=== PATIENT | female | born 1945 | race Caucasian/White ===

== ENCOUNTER 2021-01-18 13:00 | Outpatient (RCR) | payer MEDICARE, OTHER, SELFPAY | END 2021-03-05 10:49 | disposition home or self-care (01) | LOC: HO.PTCHIC 13:00 | PROVIDERS: PCP Internal Medicine; Visit Provider Podiatrist | DX: M76.61 Achilles tendinitis, right leg (principal) | CPT/HCPCS: 97033; 97035; 97110; 97140; 97162 ==